=== PATIENT | female | born 1950 | race Caucasian/White ===

== ENCOUNTER → 2020-08-21 | Outpatient (CLI) | payer MEDICARE, SELFPAY ==
[~2020-08-21] MED LIST: AMARYL 2MG TABLE2 MG PO; AMLODIPINE BESY10 MG PO; ASPIRIN CHEWABL81 MG PO; BASAGLAR K100 UNIT/1 INJ; CLOPIDOGREL75 MG PO; CRESTOR20 MG PO; ELIQUIS 5 MG TAB5 MG PO; FERROUS SULFAT325 MG PO; HYDROCHLOROTHIA25 MG PO; IMDUR ER TAB 6060 MG PO; LASIX TAB 20 MG20 MG PO; LISINOPRIL20 MG PO; LISINOPRIL30 MG PO; NOVOLIN INJ; PANTOPRAZOLE SO40 MG PO; PLAVIX 75 MG TA75 MG PO; PROTONIX 40 MG40 M1 PO; RANITIDINE HCL300 MG PO; RANOLAZINE ER500 MG PO; SYMBICORT 16010.2 GM INH; TOPROL XL100 MG PO; TRAMADOL HCL50 MG PO; ZYLOPRIM 300 M300 MG PO
== END ==
LOC: HEART 5 13:05
DX: I35.0 Nonrheumatic aortic (valve) stenosis (principal); I48.91 Unspecified atrial fibrillation; I25.10 Atherosclerotic heart disease of native coronary artery without angina pectoris; I05.0 Rheumatic mitral stenosis
CPT/HCPCS: 93306